=== PATIENT | male | born 1990 | race African-American/Black ===

== ENCOUNTER 2018-02-12 12:43 | Emergency (ER) | payer OTHER ==
[2018-02-12 13:11] VITALS: BP 138/82; PULSE 75; TEMP 98.6; BMI 37.8
--- NOTE | 2018-02-12 13:49 | PDOC ---
History of Present Illness - General Chief Complaint: Toothache Stated Complaint: TOOTHACHE Time Seen by Provider: 02/12/18 13:25 History Source: Patient Exam Limitations: No Limitations - History of Present Illness Initial Comments: CHIEF COMPLAINT: 27 y/o afebrile male c/o tooth pain. HISTORY OF PRESENT ILLNESS: The patient states he went to the dentist, was told he has a cracked tooth, was given rx for ibuprofen and an antibiotic and an appointment for tooth extraction on 03/06. THe patient states he cannot chew because the pain is so bad. He denies all other complaints. Vital signs on arrival are within normal limits. REVIEW OF SYSTEMS: GENERAL/CONSTITUTIONAL: No fever/chills. No weakness. No weight change. HEENT: +right tooth pain. No change in vision. No ear pain or discharge. No sore throat. SKIN: No rash or easy bruising. NEUROLOGIC: No headache, vertigo, loss of consciousness, or loss of sensation. PHYSICAL EXAM: GENERAL: The patient is awake, alert, and fully oriented, in no acute distress. HEAD: Normal with no signs of trauma. ENT: Cracked right bottom molar that is very TTP with minimal surrounding gingivitis. No abscess noted. Pupils equal, round and reactive to light, extraocular movements intact, sclera anicteric, conjunctiva clear. Neck supple. NEUROLOGICAL: Normal speech, normal gait. CN II-XII grossly intact. SKIN: Warm, dry, normal turgor, no rashes or lesions noted. Past History - Past Medical History Allergies/Adverse Reactions: Allergies Allergy/AdvReac Type Severity Reaction Status Date / Time No Known Allergies Allergy Verified 02/12/18 13:09 Home Medications: Ambulatory Orders No Home Medications 0 dose .ROUTE UTDICT 04/29/12 Ibuprofen [Motrin -] 600 mg PO TID 02/12/18 Oxycodone HCl/Acetaminophen [Percocet 5-325 mg Tablet] 1 tab PO Q6H #8 tablet MDD 4 02/12/18 Penicillin V Potassium [Pen Vee K -] 500 mg PO TID 02/12/18 CVA: No COPD: No Diabetes: No - Immunization History Immunization Up to Date: Yes - Suicide/Smoking/Psychosocial Hx Smoking Status: No Smoking History: Never smoked Number of Cigarettes Smoked Daily: 0 Information on smoking cessation initiated: No Hx Alcohol Use: No Drug/Substance Use Hx: No Substance Use Type: None *Physical Exam - Vital Signs Last Vital Signs Temp Pulse Resp BP Pulse Ox 98.6 F 75 17 138/82 100 02/12/18 13:09 02/12/18 13:09 02/12/18 13:09 02/12/18 13:09 02/12/18 13:09 Medical Decision Making - Medical Decision Making A/P: 27 y/o male with right sided tooth decay and dental pain. WIll give 1 PO percocet and refer to urgent care dental in [place]. WIll send rx for 8 percocet pills and instructed him to take with ibuprofen. Informed him percocet can cause drowsiness. Instructed him to return to the ER with any worsening or concerning symptoms. The patient verbalizes understanding of all instructions, has no further questions and is awaiting discharge. *DC/Admit/Observation/Transfer Diagnosis at time of Disposition: Toothache, Dental caries - Discharge Dispostion Disposition: HOME Condition at time of disposition: Good - Prescriptions Prescriptions: Oxycodone HCl/Acetaminophen [Percocet 5-325 mg Tablet] 1 tab PO Q6H #8 tablet MDD 4 - Referrals Referrals: Mani Díaz [Primary Care Provider] - - Patient Instructions Printed Discharge Instructions: DI for Tooth Decay, DI for Dental Pain Additional Instructions: Discharge Instructions: -A prescription for pain medication has been sent to your pharmacy; this may cause drowsiness -You can continue to take Ibuprofen for pain as well -Continue taking the antibiotics as prescribed -Go to [facility] as soon as possible to have tooth removed. Emergency dental service in [place], [place] Address: [address] [place] [id number] - Post Discharge Activity
== END 2018-02-12 14:01 | disposition home or self-care (01) ==
LOC: JERFT 12:43
DX: K02.9 Dental caries, unspecified (principal)
CPT/HCPCS: 99281-25